=== PATIENT | female | born 2000 | race Caucasian/White ===

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

== ENCOUNTER 2018-04-30 19:00 | Emergency (ER) | payer OTHER | END 2018-04-30 20:41 | disposition home or self-care (01) | LOC: ERS 19:00 | DX: J02.9 Acute pharyngitis, unspecified (principal); H65.93 Unspecified nonsuppurative otitis media, bilateral; J30.9 Allergic rhinitis, unspecified | CPT/HCPCS: 87081; 87430; 99283 ==